=== PATIENT | female | born 1990 | race Caucasian/White ===

== ENCOUNTER 2016-04-01 12:51 | Emergency (ER) | payer OTHER ==
[~2016-04-01] VITALS: Ht 170.2 cm; Wt 67.0 kg
[2016-04-01] MEDS ORDERED: CYCL5TAB PO (13:18)
[2016-04-01] MEDS ORDERED: EXTR500C PO (13:18)
[2016-04-01] MEDS ORDERED: IBUP-232 PO (13:18)
--- NOTE | 2016-04-01 13:18 | PD ---
HPI Chief Complaint: Pain: Acute or Chronic Time Seen by Provider: 13:03 Travel History International Travel<30 days: No Contact w/Intl Traveler<30days: No Traveled to known affect area: No History of Present Illness HPI 26-year-old female resents to the emergency Department with intermittent and worsening right shoulder pain. Patient states no specific injury but has had increasing achy pain with spasm and stiffness in the posterior right shoulder for the last 2 weeks. 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 Patient states at worst the pain is an 8 /10 currently as a 6/10. It is worse with certain motions. Nothing seems to make it better. She denies Weakness numbness or tingling. Patient denies neck pain. Patient denies fever chills or cough. He has no known drug allergies. PFSH Past Medical History ?: Not LMP: 04/01/16 Social History Alcohol Use: Yes Tobacco Use: No Substance Use: No Allergies-Medications (Allergen,Severity, Reaction): Coded Allergies: No Known Allergies (Unverified , 04/01/16) Review of Systems Except as stated in HPI: all other systems reviewed are Neg General / Constitutional: No: Fever Eyes: No: Visual changes HENT: No: Headaches Cardiovascular: No: Chest Pain or Discomfort Respiratory: No: Shortness of Breath Gastrointestinal: No: Abdominal Pain Genitourinary: No: Dysuria Musculoskeletal: No: Pain Skin: No Rash Neurologic: No: Weakness Psychiatric: No: Depression Endocrine: No: Polydipsia Hematologic/Lymphatic: No: Easy Bruising Physical Exam Narrative GENERAL: Patient appears in no acute distress. SKIN: Warm and dry. Normal color. Normal turgor. No rash. HEAD: Atraumatic. Normocephalic. EYES: Pupils equal and round. No scleral icterus. No injection or drainage. ENT: No nasal bleeding or discharge. Mucous membranes pink and moist. Pharynx is clear. Airway is patent. NECK: Trachea midline. Supple and nontender. Range of motion is full. CARDIOVASCULAR: Regular rate and rhythm. RESPIRATORY: No accessory muscle use. Clear to auscultation. Breath sounds equal bilaterally. GASTROINTESTINAL: Abdomen soft, non-tender, nondistended. Hepatic and splenic margins not palpable. MUSCULOSKELETAL: Extremities without clubbing, cyanosis, or edema. No obvious deformities. Right shoulder appears normal. There is full range of motion. Patient has point tenderness in the subscapularis and medial scapular border with muscle spasm present. The shoulder joint itself is nontender with full range of motion for the rotator cuff. He has normal neurovascular exam distal to the shoulder. No healthcare technician strength weakness or weakness in extension or flexion of the elbow. NEUROLOGICAL: Awake and alert. No obvious cranial nerve deficits. Motor grossly within normal limits. Five out of 5 muscle strength in the arms and legs. Normal speech. PSYCHIATRIC: Appropriate mood and affect; insight and judgment normal. MDM Medical Decision Making Medical Screen Exam Complete: Yes Emergency Medical Condition: Yes Differential Diagnosis Right shoulder pain. Muscle spasm. Shoulder strain. Narrative Course Patient is medically stable at time of exam. Radiographic imaging is not felt necessary based on my physical exam. Patient is given ibuprofen 600 mg 4 times a day #40. Patient is given cyclobenzaprine 5 mg 3 times a day when necessary muscle spasms #30. Patient is given a prescription for acetaminophen 500 mg 2 tabs every 6 hours when necessary pain #60. Discussed the use of heat and ice and gentle stretching. Patient should follow up if symptoms do not improve or worsen as discussed. Diagnosis Primary Impression: Strain of right levator scapulae muscle Qualified Code: S46.811A - Strain of right levator scapulae muscle, initial encounter Additional Impression: Muscle spasm of right shoulder Patient Instructions: Exercises for Internal and External Shoulder Rotation (ED ), Exercises for Shoulder Abduction and Adduction (GEN), Exercises for Shoulder Flexion and Extension (ED), General Instructions, Muscle Spasm (ED) Additional Instructions: Radiographic imaging is not felt necessary based on my physical exam. Patient is given ibuprofen 600 mg 4 times a day #40. Patient is given cyclobenzaprine 5 mg 3 times a day when necessary muscle spasms #30. Patient is given a prescription for acetaminophen 500 mg 2 tabs every 6 hours when necessary pain #60. Discussed the use of heat and ice and gentle stretching. Patient should follow up if symptoms do not improve or worsen as discussed. Med/Other Pt SpecificInfo: Prescription(s) given Disposition: 01 DISCHARGE HOME Condition: Stable Miguelangel Chandler Apr 01, 2016 13:18
== END 2016-04-01 13:40 | disposition home or self-care (01) ==
LOC: NEPB 12:51
DX: S46.811A Strain of other muscles, fascia and tendons at shoulder and upper arm level, right arm, initial encounter (principal); M62.838 Other muscle spasm; X50.3XXA Overexertion from repetitive movements, initial encounter; X50.9XXA Other and unspecified overexertion or strenuous movements or postures, initial encounter; Y93.89 Activity, other specified; Y92.9 Unspecified place or not applicable
CPT/HCPCS: 99283

== ENCOUNTER 2017-05-06 09:53 | Emergency (ER) | payer OTHER ==
[~2017-05-06] VITALS: Ht 170.2 cm; Wt 68.0 kg
[~2017-05-06 09:53] MED LIST: CYCL5TAB PO; EXTR500C PO; IBUP-232 PO
[2017-05-06 10:04] VITALS: BP 109/54; PULSE 77; RESP 16; TEMP 98.3; O2SAT 100
[2017-05-06] MEDS ORDERED: IBUP-232 PO (10:49)
--- NOTE | 2017-05-06 10:49 | PD ---
HPI Chief Complaint: Injury Time Seen by Provider: 10:42 Travel History International Travel<30 days: No Contact w/Intl Traveler<30days: No Traveled to known affect area: No History of Present Illness HPI 27-year-old female complains of right hand pain. 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 She denies injury recently however reports playing with her child yesterday. No numbness or tingling. No similar prior episodes. Severity mild to moderate. PFSH Social History Alcohol Use: Yes Tobacco Use: No Substance Use: No Allergies-Medications (Allergen,Severity, Reaction): Coded Allergies: No Known Allergies (Unverified , 04/01/16) Reported Meds & Prescriptions Reported Meds & Active Scripts Active Acetaminophen Extra Strength (Acetaminophen) 500 Mg Cap 1,000 Mg PO Q6H PRN Flexeril (Cyclobenzaprine HCl) 5 Mg Tab 5 Mg PO TID Review of Systems General / Constitutional: No: Fever Musculoskeletal: Positive: Pain, No: Myalgias, Weakness Neurologic: No: Weakness, Dizziness, Coordination Problem, Paresthesia, Sensory Disturbance Physical Exam Narrative GENERAL: 27-year-old female pleasant well-nourished well-developed Vital Signs Date Time Temp Pulse Resp B/P (MAP) Pulse Ox O2 Delivery O2 Flow Rate FiO2 05/06/17 10:04 98.3 77 16 109/54 (72) 100 SKIN: Warm and dry. HEAD: Normocephalic. EYES: No scleral icterus. No injection or drainage. NECK: Supple, trachea midline. No JVD or lymphadenopathy. CARDIOVASCULAR: Regular rate and rhythm without murmurs, gallops, or rubs. RESPIRATORY: Breath sounds equal bilaterally. No accessory muscle use. GASTROINTESTINAL: Abdomen soft, non-tender, nondistended. MUSCULOSKELETAL: No cyanosis, or edema. Examination of the hand reveals normal range of motion at the wrist as well as the fingers and intra-articular phalangeal joints. He has 2+ radial artery pulse and normal capillary refill on both sides. There is no deformity contusion abrasion puncture burn laceration on either side. No evidence de Quervain's tenosynovitis or carpal tunnel syndrome. BACK: Nontender without obvious deformity. No CVA tenderness. Data Data Last Documented VS Vital Signs Date Time Temp Pulse Resp B/P (MAP) Pulse Ox O2 Delivery O2 Flow Rate FiO2 05/06/17 10:04 98.3 77 16 109/54 (72) 100 MDM Medical Decision Making Medical Screen Exam Complete: Yes Emergency Medical Condition: Yes Medical Record Reviewed: Yes Differential Diagnosis Contusion, ecchymosis, sprain Narrative Course There is no significant injury. There might be a very subtle tendon strain. Ibuprofen as needed. Diagnosis Primary Impression: Hand pain, right Med/Other Pt SpecificInfo: Prescription(s) given Scripts Ibuprofen (Ibuprofen) 600 Mg Tab 600 MG PO Q6H Y for Pain/Inflammation, #40 TAB Prov: Adam Franklin MD 05/06/17 Disposition: 01 DISCHARGE HOME Condition: Stable Adam Franklin MD May 06, 2017 10:49
== END 2017-05-06 11:04 | disposition home or self-care (01) ==
LOC: NEPD 09:53
DX: M79.641 Pain in right hand (principal)
CPT/HCPCS: 99282